=== PATIENT | male | born 1985 | race Caucasian/White ===

== ENCOUNTER 2017-11-23 20:28 | Emergency (ER) | payer MEDICAID ==
[~2017-11-23] VITALS: Ht 195.6 cm; Wt 77.1 kg
[2017-11-23 20:37] VITALS: BP 113/71
== END 2017-11-23 23:10 | disposition left against medical advice (07) ==
LOC: ER 20:28
DX: M54.5 Low back pain (principal); M79.662 Pain in left lower leg; Z53.21 Procedure and treatment not carried out due to patient leaving prior to being seen by health care provider

== ENCOUNTER 2018-06-09 06:11 | Emergency (ER) | payer MEDICAID ==
[~2018-06-09] VITALS: Ht 195.6 cm; Wt 77.1 kg
[2018-06-09] MEDS ORDERED: IBUPROFEN 800 MG TAB PO ONE (06:30)
[2018-06-09 07:20] VITALS: BP 133/73
== END 2018-06-09 07:30 | disposition home or self-care (01) ==
LOC: ER 06:12
DX: L84 Corns and callosities (principal); F17.210 Nicotine dependence, cigarettes, uncomplicated

== ENCOUNTER 2018-07-07 00:07 | Emergency (ER) | payer MEDICAID ==
[~2018-07-07] VITALS: Ht 195.6 cm; Wt 81.6 kg
[2018-07-07 01:07] VITALS: BP 110/53
== END 2018-07-07 04:17 | disposition left against medical advice (07) ==
LOC: ER 00:10
DX: M79.642 Pain in left hand (principal); M79.641 Pain in right hand; Z53.21 Procedure and treatment not carried out due to patient leaving prior to being seen by health care provider